=== PATIENT | male | born 1965 | race American Indian/Alaskan Native ===

== ENCOUNTER 2018-05-10 15:20 | Emergency (ER) | payer MEDICARE, OTHER ==
[2018-05-10 15:22] VITALS: BMI 30.4
[2018-05-10 15:25] VITALS: RESP 18; TEMP 98
[2018-05-10 16:23] LABS: BASO # 0.02 K/mm3 (0.0-2.0); BASO % 0.2 % (0.0-3.0); EOS # 0.2 (0.0-0.7); EOS % 2.6 % (1.5-5.0); LYMPH # 2.2 (1.2-3.4); MEAN CELL VOLUME 87.2 fl (80.0-105.0); MEAN CORPUSCULAR HEMOGLOBIN 28.8 pg (25.0-35.0); MEAN PLATELET VOLUME 9.7 fl (7.0-11.0); MONO # 0.9 (0.1-0.6); MONO % 11.5 % (1.0-6.0); RBC 4.86 10^6/uL (3.5-6.1); RED CELL DISTRIBUTION WIDTH 13.1 % (11.5-14.5); WHITE BLOOD COUNT 8.2 10^3/uL (4.5-11.0)
[2018-05-10 16:33] LABS: ALB/GLOB RATIO 1.1 (1.1-1.8); ALBUMIN 4.4 g/dL (3.0-4.8); ALT/SGPT 31 U/L (7-56); AST/SGOT 30 U/L (17-59); BLOOD UREA NITROGEN 8 mg/dL (7-21); CALCIUM 9.2 mg/dL (8.4-10.5); GFR NON-AFRICAN AMERICAN > 60
[2018-05-10] MEDS ORDERED: Iodixanol 320 MG/ML 100 ML BOTTLE IV ONE (17:12)
--- NOTE | 2018-05-10 17:36 | CT ---
Date of service: 05/10/2018 PROCEDURE: CT ORBITS WITH CONTRAST. HISTORY: left eye swelling, pain. r/o orbital cellulitis COMPARISON: None available. TECHNIQUE: Following administration of intravenous iodinated contrast, axial CT images of the orbits were obtained. Coronal and sagittal reformats were generated. Intravenous contrast dose: 100 mL of Visipaque 320 intravenously. Radiation dose: Total exam DLP = 821.77 mGy-cm. This CT exam was performed using one or more of the following dose reduction techniques: Automated exposure control, adjustment of the mA and/or kV according to patient size, and/or use of iterative reconstruction technique. FINDINGS: RIGHT ORBIT: RIGHT BONY ORBIT: Normal. RIGHT INTRAORBITAL STRUCTURES: Globe: Normal. Extraocular muscles: Normal. Post septal space: Normal. Optic Nerve: Normal. Lacrimal Apparatus: Normal. RIGHT PRESEPTAL SOFT TISSUES: Normal. LEFT ORBIT: LEFT BONY ORBIT: Normal. LEFT INTRAORBITAL STRUCTURES: Globe: Normal. Extraocular muscles: Normal. Post septal space: No evidence of inflammatory changes in the postseptal space. Optic Nerve: Normal. Lacrimal Apparatus: Normal. LEFT PRESEPTAL SOFT TISSUES: There is moderate enhancing thickening of the soft tissue in the left preseptal region suggestive of preseptal cellulitis OTHER: . IMPRESSION: Findings suggestive of left preseptal cellulitis. No evidence of postseptal cellulitis or intraorbital abscess formation.
--- NOTE | 2018-05-10 18:02 | ED PDOC ---
Arrival/HPI - General Chief Complaint: Eye Problem Time Seen by Provider: 05/10/18 15:25 Historian: Patient - History of Present Illness Narrative History of Present Illness (Text): 05/10/18 18:08 52 y/o male with no significant PMH presents to ED c/o swelling to left upper eyelid x 1 day. Pt states he saw his eye doctor 2 days ago and had a normal exam. He states he has had a "knot" in his left upper eyelid for a long time, b ut yesterday it became swollen and red with associated pain to the eyelid. Denies fevers, chills, vision changes, headache, dizziness, nausea, vomiting, abdominal pain, neck pain, back pain, numbness, weakness, paresthesias, or any other associated symptoms. Past Medical History - Provider Review Nursing Documentation Reviewed: Yes - Past History Past History: No Previous - Infectious Disease Hx of Infectious Diseases: None - Tetanus Immunization Tetanus Immunization: Unknown - Psychiatric Hx Depression: No Hx Emotional Abuse: No Hx Physical Abuse: No Hx Substance Use: No - Past Surgical History Past Surgical History: No Previous - Surgical History Other/Comment: back surgery - Anesthesia Hx Anesthesia Reactions: No Hx Malignant Hyperthermia: No - Suicidal Assessment Feels Threatened In Home Enviroment: No Family/Social History - Physician Review Nursing Documentation Reviewed: Yes Family/Social History: No Known Family HX Smoking Status: Current Some Days Smoker Hx Alcohol Use: No Hx Substance Use: No Hx Substance Use Treatment: No Allergies/Home Meds Allergies/Adverse Reactions: Allergies No Known Allergies Allergy (Verified 05/24/12 10:35) Physical Exam Vital Signs Reviewed: Yes Vital Signs Temp Pulse Resp BP Pulse Ox 05/10/18 15:20 98 F 70 18 168/98 H 98 Temperature: Afebrile Blood Pressure: Hypertensive Pulse: Regular Respiratory Rate: Normal Appearance: Positive for: Well-Appearing, Non-Toxic, Comfortable Pain Distress: None Mental Status: Positive for: Alert and Oriented X 3 - Systems Exam Head: Present: Atraumatic, Normocephalic Pupils: Present: PERRL Extroacular Muscles: Present: EOMI. No: Gaze Palsy, Entrapment Conjunctiva: Present: Normal, Other (1cm diameter mobile, hard, cyst-like mass in center of left upper eyelid, NOT on lid margin with associated upper and lower lid swelling and warmth. No fluctuance.). No: Injected Ears: Present: Normal, NORMAL TM, Normal Canal Mouth: Present: Moist Mucous Membranes Pharnyx: Present: Normal. No: ERYTHEMA, EXUDATE Nose (External): Present: Atraumatic Nose (Internal): Present: Normal Inspection Neck: Present: Normal Range of Motion. No: Meningeal Signs, MIDLINE TENDERNESS, Paraspinal Tenderness Respiratory/Chest: Present: Clear to Auscultation, Good Air Exchange. No: Respiratory Distress, Accessory Muscle Use Cardiovascular: Present: Regular Rate and Rhythm, Normal S1, S2, Peripheal Pulses Present. No: Murmurs Abdomen: Present: Normal Bowel Sounds. No: Tenderness, Distention, Peritoneal S igns, Rebound, Guarding Back: Present: Normal Inspection. No: CVA Tenderness Upper Extremity: Present: Normal Inspection, Normal ROM, NORMAL PULSES, Neurovascularly Intact, Capillary Refill < 2s. No: Cyanosis, Edema, Temperature Abnormalties Lower Extremity: Present: Normal Inspection, NORMAL PULSES, Normal ROM, Neurovascularly Intact, Capillary Refill < 2 s. No: Edema, Temperature Abnormalties Neurological: Present: GCS=15, CN II-XII Intact, Speech Normal, Motor Func Grossly Intact, Normal Sensory Function, Gait Normal Skin: Present: Warm, Dry, Normal Color, Erythematous (skin around left eye), Other (swelling and redness to skin around left eye). No: Rashes, Abscess Lymphatic: No: Cervical Adenopathy Psychiatric: Present: Alert, Oriented x 3, Normal Insight, Normal Concentration, Normal Affect, Normal Mood Medical Decision Making ED Course and Treatment: Initial Plan: * CBC, CMP * CT Orbits and Facials with IV contrast Labwork unremarkable, no leukocytosis. CT suspicious for preseptal cellulitis. Will place patient on course of oral antibiotics and consult ophthalmology. Patient evaluated at bedside by Dr. Denton, who agrees with plan of care and disposition. 18:00 Call placed to ophthalmology Dr. Chacon. States most likely chalazion, may ultimately need excision/drainage. Advises Tobradex drops four times daily in left eye in addition to oral antibiotics for preseptal cellulitis. Appointment scheduled for 9am Saturday morning in his office. Patient made aware and repeated appointment time and date back to me, verbalized understanding of importance of followup. States he will followup as instructed. Patient without history of hypertension, BP 166/107. Advised staying for management of BP in ED, patient refuses. Will have patient sign out AMA. The patient is choosing to leave against medical advice. I have personally explained to the patient that choosing to do so may result in permanent bodily harm, disability, or . I have discussed at great length that without further evaluation and monitoring there may be unforeseen circumstances and/or deterioration causing permanent bodily harm or as a result of their choice. The patient is alert, oriented, and shows the mental capacity to make clear decisions regarding the patients health care at this time. The patient continues to wish to leave against medical advice. In light of the patients decision to leave against medical advice, follow-up has been arranged and the patient is aware of the importance to following up as instructed. The patient has been advised that they should return to the emergency room immediately if they change their mind at any time, or if their condition begins to change or worsen in any way. Patient left ED without waiting for first dose of medications. IV line was removed prior to patient leaving. Patient given discharge paperwork and prescriptions. - Lab Interpretations Lab Results: Total Bilirubin 0.4 mg/dL (0.2-1.3) 05/10/18 16:10 AST 30 U/L (17-59) 05/10/18 16:10 ALT 31 U/L (7-56) 05/10/18 16:10 Alkaline Phosphatase 90 U/L (38-126) 05/10/18 16:10 Total Protein 8.3 g/dL (5.8-8.3) 05/10/18 16:10 Albumin 4.4 g/dL (3.0-4.8) 05/10/18 16:10 Globulin 3.9 gm/dL 05/10/18 16:10 Albumin/Globulin Ratio 1.1 (1.1-1.8) 05/10/18 16:10 05/10/18 16:10 05/10/18 16:10 Lab Results 05/10/18 16:10: Sodium 140, Potassium 3.9, Chloride 104, Carbon Dioxide 29, Anion Gap 10, BUN 8, Creatinine 0.9, Est GFR ( Amer) > 60, Est GFR (Non- Af Amer) > 60, Random Glucose 87, Calcium 9.2, Total Bilirubin 0.4, AST 30, ALT 31, Alkaline Phosphatase 90, Total Protein 8.3, Albumin 4.4, Globulin 3.9, Albumin/Globulin Ratio 1.1 05/10/18 16:10: WBC 8.2, RBC 4.86, Hgb 14.0, Hct 42.4, MCV 87.2, MCH 28.8, MCHC 33.0, RDW 13.1, Plt Count 223, MPV 9.7, Neut % (Auto) 58.7, Lymph % (Auto) 27.0, [place] % (Auto) 11.5 H, Eos % (Auto) 2.6, Baso % (Auto) 0.2, Lymph # (Auto) 2.2, [place] # (Auto) 0.9 H, Eos # (Auto) 0.2, Baso # (Auto) 0.02, Absolute Neuts (auto) 4.82 I have reviewed the lab results: Yes Interpretation: All labs normal - RAD Interpretation Narrative RAD Interpretations (Text): 05/10/18 17:59 CT Orbits/Facials with IV Contrast: FINDINGS: RIGHT ORBIT: RIGHT BONY ORBIT: Normal. RIGHT INTRAORBITAL STRUCTURES: Globe: Normal. Extraocular muscles: Normal. Post septal space: Normal. Optic Nerve: Normal. Lacrimal Apparatus: Normal. RIGHT PRESEPTAL SOFT TISSUES: Normal. LEFT ORBIT: LEFT BONY ORBIT: Normal. LEFT INTRAORBITAL STRUCTURES: Globe: Normal. Extraocular muscles: Normal. Post septal space: No evidence of inflammatory changes in the postseptal space. Optic Nerve: Normal. Lacrimal Apparatus: Normal. LEFT PRESEPTAL SOFT TISSUES: There is moderate enhancing thickening of the soft tissue in the left preseptal region suggestive of preseptal cellulitis OTHER: IMPRESSION: Findings suggestive of left preseptal cellulitis. No evidence of postseptal cellulitis or intraorbital abscess formation. Radiology Orders: 05/10/18 15:43 ORBITS/ FACIALS W/ CONT [CT] Stat Coater Operator Insulation Board: Radiologist Disposition/Present on Arrival - Present on Arrival Any Indicators Present on Arrival: No History of DVT/PE: No History of Uncontrolled Diabetes: No Urinary Catheter: No History of Decub. Ulcer: No History Surgical Site Infection Following: None - Disposition Have Diagnosis and Disposition been Completed?: Yes Diagnosis: Chalazion, Preseptal cellulitis of left eye Disposition: AGAINST MEDICAL ADVICE Disposition Time: 19:00 Patient Plan: Discharge Condition: STABLE Discharge Instructions (ExitCare): Chalazion Additional Instructions: Followup with Dr. Chacon, eye doctor. You have an appointment at 9am on Saturday. Office listed below. Warm compresses 15 minutes at a time, 4 times daily. Change water and cloth in between. Augmentin twice daily for 7 days Bactrim twice daily for 7 days Tobradex 1 drop in left eye 4 times daily until followup with Dr. Chacon Followup with primary doctor within 2 days Return to ER with any new/worsening symptoms Prescriptions: Amoxicillin/Clavulanate [Augmentin 875 MG-125 MG] 1 tab PO Q12H #13 tab Ibuprofen [Motrin Tab] 600 mg PO Q8H #30 tab Sulfamethoxazole/Trimethoprim [Bactrim DS 800 mg-160 mg] 1 tab PO Q12H #13 tab Tobramycin/Dexamethasone [Tobradex St Eye Drops] 5 ml OS Q6H #1 bottle Referrals: Bryan Arciniega MD [Primary Care Provider] - Follow up with primary Chas Chacon MD [Staff Provider] - Follow up with primary Forms: [employer] (Czech), WORK NOTE
[2018-05-10 18:42] VITALS: PULSE 75
[2018-05-10] MEDS ORDERED: Amoxicillin-Clav 875-125 mg Tab PO STA (18:45)
[2018-05-10] MEDS ORDERED: Tmp-Smz 800 mg-160 mg DS Tab PO STA (18:45)
[2018-05-10 19:03] VITALS: BP 148/99; O2SAT 98
== END 2018-05-10 19:01 | disposition left against medical advice (07) ==
LOC: ED 15:20
DX: L03.213 Periorbital cellulitis (principal); H00.14 Chalazion left upper eyelid
CPT/HCPCS: 70481; 80053; 85025; 99283; Q9967

== ENCOUNTER 2018-06-12 08:11 | Outpatient (CLI) | payer MEDICARE | END 2018-06-12 08:12 | disposition home or self-care (01) | LOC: CARDIO 08:11 ==

== ENCOUNTER 2018-09-07 08:35 | Emergency (ER) | payer MEDICARE ==
--- NOTE | 2018-09-07 08:46 | ED PDOC ---
Arrival/HPI - General Time Seen by Provider: 09/07/18 08:39 Historian: Patient - History of Present Illness Narrative History of Present Illness (Text): 09/07/18 08:52 52 year old male, with past medical history of hypertension, back surgery, and shoulder surgery presents to emergency department for complaints of shortness of breath and diffuse, vague left-sided pain in abdominal pain following waking up this morning. Patient reports associated nausea and sweats. He states he has never experienced these symptoms before. Patient denies any fevers, headache, dizziness, vomiting, diarrhea, back pain, neck pain, or any other complaints. He also denies any drug abuse or alcohol consumption. Patient admits to smoking a little less than a pack a day of cigarettes a day for the past 15 years. PMD: Time/Duration: Prior to Arrival Symptom Onset: Sudden Symptom Course: Unchanged Activities at Onset: Light Context: Home Past Medical History - Provider Review Nursing Documentation Reviewed: Yes - Past History Past History: No Previous - Infectious Disease Hx of Infectious Diseases: None - Tetanus Immunization Tetanus Immunization: Unknown - Psychiatric Hx Depression: No Hx Emotional Abuse: No Hx Physical Abuse: No Hx Substance Use: No - Past Surgical History Past Surgical History: No Previous - Surgical History Other/Comment: back surgery - Anesthesia Hx Anesthesia Reactions: No Hx Malignant Hyperthermia: No - Suicidal Assessment Feels Threatened In Home Enviroment: No Family/Social History - Physician Review Nursing Documentation Reviewed: Yes Family/Social History: No Known Family HX Smoking Status: Current Some Days Smoker Hx Alcohol Use: No Hx Substance Use: No Hx Substance Use Treatment: No Allergies/Home Meds Allergies/Adverse Reactions: Allergies No Known Allergies Allergy (Verified 05/24/12 10:35) Review of Systems - Physician Review All systems were reviewed & negative as marked: Yes - Review of Systems Constitutional: absent: Fevers Gastrointestinal: absent: Vomiting Physical Exam - Physical Exam Narrative Physical Exam (Text): 09/07/18 08:44 Constitutional: Appears uncomfortable, breathing heavily Head: Normocephalic. Atraumatic. Eyes: PERRL. ENT: Moist mucous membranes. Neck: Supple. Cardiovascular: Regular rate. Chest: No tenderness. Respiratory: Clear to auscultation bilaterally. GI: Diffuse abdominal tenderness without rebound or guarding Back: No CVA tenderness. Musculoskeletal: No tenderness or swelling of extremities. Skin: No rash. Neurologic: Alert, no focal deficit. Vital Signs Reviewed: Yes Vital Signs Temp Pulse Resp BP Pulse Ox 09/07/18 08:41 97.6 F 54 L 18 140/67 98 Temperature: Afebrile Blood Pressure: Normal Pulse: Regular Respiratory Rate: Normal Appearance: Positive for: Well-Appearing, Non-Toxic, Comfortable Pain Distress: None Mental Status: Positive for: Alert and Oriented X 3 Medical Decision Making ED Course and Treatment: 09/07/18 08:48 Impression: 52 year old male presents to emergency department for shortness of breath and left-sided pain chest/abdominal pain since waking up this morning. Plan: -- Labs -- Chest X-ray -- Aspirin -- Zofran Progress Notes: EKG: Ordered, reviewed, and independently interpreted the EKG. Rate : 54 BPM Rhythm : Sinus rhythm Interpretation : No ST elevations, T wave inversions, inferior 09/07/18 10:58 CT abdomen/pelvis, reviewed by radiologist: IMPRESSION: Infectious/inflammatory gastritis and pancolitis. No obstruction. Left renal lower pole 1.6 cm lesion with peripheral calcification, nonspecific. Nonemergent renal ultrasound and multiphasic CT/MRI can be obtained for further characterization as clinically warranted. 09/07/18 11:17 Chest X-ray, reviewed by radiologist: IMPRESSION: No active disease. Patient states he feels better and would like to go home. I offered patient admission for intractible vomiting and EKG changes. Patient states he definitely had these T wave inversions on his previous EKG and that was why he was sent for an echo. He declines admission and wishes to go home. Instructed to return to ED immediately for intractible vomiting or any other problem. - Scribe Statement The provider has reviewed the documentation as recorded by the Scribe Jermain Sewell All medical record entries made by the Scribe were at my direction and personally dictated by me. I have reviewed the chart and agree that the record accurately reflects my personal performance of the history, physical exam, medical decision making, and the department course for this patient. I have also personally directed, reviewed, and agree with the discharge instructions and disposition. Disposition/Present on Arrival - Present on Arrival Any Indicators Present on Arrival: No History of DVT/PE: No History of Uncontrolled Diabetes: No Urinary Catheter: No History Surgical Site Infection Following: None - Disposition Have Diagnosis and Disposition been Completed?: Yes Diagnosis: Pancolitis Disposition: HOME/ ROUTINE Disposition Time: 11:14 Patient Plan: Discharge Patient Problems: Current Active Problems Problem Status Onset Pancolitis Acute Condition: FAIR Discharge Instructions (ExitCare): Colitis (DC) Prescriptions: Ciprofloxacin [Cipro] 500 mg PO BID #20 tab Metronidazole [Flagyl] 500 mg PO Q8 #30 tab Ondansetron ODT [Zofran ODT] 8 mg PO Q8H PRN #12 odt PRN Reason: Nausea/Vomiting
[2018-09-07 08:51] VITALS: RESP 18; BMI 107.6
[2018-09-07 08:54] VITALS: TEMP 97.8; O2SAT 100
[2018-09-07 09:24] LABS: BASO # 0.02 K/mm3 (0.0-2.0); BASO % 0.2 % (0.0-3.0); EOS # 0.2 (0.0-0.7); EOS % 2.7 % (1.5-5.0); HEMOGLOBIN 13.4 g/dL (14.0-18.0); LYMPH # 2.8 (1.2-3.4); LYMPH % 31.8 % (22.0-35.0); MEAN CELL VOLUME 85.2 fl (80.0-105.0); MEAN CORPUSCULAR HEMOGLOBIN 29.2 pg (25.0-35.0); MEAN CORPUSCULAR HGB CONC 34.3 g/dl (31.0-37.0); MEAN PLATELET VOLUME 9.8 fl (7.0-11.0); MONO # 0.9 (0.1-0.6); MONO % 9.8 % (1.0-6.0); RBC 4.59 10^6/uL (3.5-6.1); WHITE BLOOD COUNT 8.6 10^3/uL (4.5-11.0)
[2018-09-07 09:28] LABS: INR 1.06
[2018-09-07 09:30] LABS: ALB/GLOB RATIO 1.3 (1.1-1.8); ALBUMIN 4.1 g/dL (3.0-4.8); ALT/SGPT 28 U/L (7-56); AST/SGOT 28 U/L (17-59); BLOOD UREA NITROGEN 10 mg/dL (7-21); CALCIUM 9.4 mg/dL (8.4-10.5); GFR NON-AFRICAN AMERICAN > 60; LIPASE 35 U/L (23-300)
[2018-09-07 09:41] LABS: B-TYPE NATRIURETIC PEPTIDE 156 pg/mL (0-450); TROPONIN I < 0.01 ng/mL
[2018-09-07] MEDS ORDERED: Iohexol 350 MG/100 ML VIAL ONE (09:44)
[2018-09-07 09:56] LABS: CK-MB 3.6 ng/mL (0.0-3.6)
--- NOTE | 2018-09-07 11:01 | CT ---
Date of service: 09/07/2018 PROCEDURE: CT Abdomen and Pelvis with contrast HISTORY: abd pain, vomiting COMPARISON: None. TECHNIQUE: Contrast dose: 100 mL Omnipaque 350 Radiation dose: Total exam DLP = 1092.57 mGy-cm. This CT exam was performed using one or more of the following dose reduction techniques: Automated exposure control, adjustment of the mA and/or kV according to patient size, and/or use of iterative reconstruction technique. FINDINGS: LOWER THORAX: Unremarkable. LIVER: Unremarkable. No gross lesion or ductal dilatation. GALLBLADDER AND BILE DUCTS: Unremarkable. PANCREAS: Unremarkable. No gross lesion or ductal dilatation. SPLEEN: Unremarkable. ADRENALS: Unremarkable. No mass. KIDNEYS AND URETERS: Left lower pole 1.6 x 1.3 x 1.6 cm lesion with peripheral calcification, nonspecific. 2.0 cm left interpolar cyst. VASCULATURE: Unremarkable. No aortic aneurysm. No aortic atherosclerotic calcification or mural plaque present. BOWEL: Distended stomach with abrupt caliber change in the proximal duodenum. Thickening of the antrum and duodenum. Thickening of the colon from ascending colon to the rectosigmoid junction. APPENDIX: Normal appendix. PERITONEUM: Unremarkable. No free fluid. No free air. LYMPH NODES: Prominent peripancreatic and gastrohepatic ligament lymph nodes. BLADDER: Unremarkable. REPRODUCTIVE: Unremarkable. BONES: Old screw tracts from removed L4-5 posterior fusion hardware. Degenerative changes. No acute fracture. OTHER FINDINGS: None. IMPRESSION: Infectious/inflammatory gastritis and pancolitis. No obstruction. Left renal lower pole 1.6 cm lesion with peripheral calcification, nonspecific. Nonemergent renal ultrasound and multiphasic CT/MRI can be obtained for further characterization as clinically warranted.
--- NOTE | 2018-09-07 11:20 | RAD ---
Date of service: 09/07/2018 HISTORY: chest pain COMPARISON: No prior. TECHNIQUE: 1 view obtained. FINDINGS: LUNGS: No active pulmonary disease. PLEURA: No significant pleural effusion identified, no pneumothorax apparent. CARDIOVASCULAR: Aortic atherosclerotic calcifications. Cardiomediastinal silhouette within normal limits. OSSEOUS STRUCTURES: No significant abnormalities. VISUALIZED UPPER ABDOMEN: Normal. OTHER FINDINGS: None. IMPRESSION: No active disease.
[2018-09-07 11:53] VITALS: BP 129/78; PULSE 61
--- NOTE | 2018-09-08 11:29 | CARD ---
APPROVED REPORT Date of service: 09/07/2018 EKG Measurement Heart [id number] <Conclusion> Sinus bradycardia with sinus arrhythmia Minimal voltage criteria for LVH, may be normal variant ST & T wave abnormality, consider inferior ischemia Abnormal ECG
--- NOTE | 2018-09-10 14:20 | CON ---
DATE OF CONSULTATION: 09/10/2018 GASTROENTEROLOGY CONSULTATION REQUESTING PHYSICIAN: Dr. Edu Ventura. REASON FOR CONSULTATION: I have been asked to see this 52-year-old male with a history of hypertension, who comes to the hospital with 3 days of crampy abdominal pain, nausea, and vomiting after eating a pizza that did not taste right. The patient was seen in the emergency room on 09/07/2018. He had a CT scan of the abdomen and pelvis, which showed a stomach, which was distended and filled with food with a distended duodenum. There appeared to be an abrupt transition in the diameter of the duodenum in the area of the descending duodenum. The patient also had some nonspecific mural thickening of the left colon. He denies any diarrhea or rectal bleeding. He denies any recent travel. Again, the patient was well until he ate pizza that tasted bad approximately 3 days ago. The patient came to the emergency room yesterday with persistent vomiting and weakness. In the emergency room, the patient had a near syncopal episode with weakness and lightheadedness. His last episode of vomiting was yesterday. He has not been able to take any p.o. by mouth. PAST MEDICAL HISTORY: Notable for hypertension. PAST SURGICAL HISTORY: Notable for low back surgery over 20 years ago and shoulder surgery. SOCIAL HISTORY: He smokes under half a pack of cigarettes per day. He denies alcohol abuse. He denies substance abuse. He is disabled and unable to work. FAMILY HISTORY: Noncontributory. REVIEW OF SYSTEMS: Fourteen-point review of systems is notable for intractable vomiting, abdominal cramps, weakness, and dizziness. MEDICATIONS: Medications at home include hydrochlorothiazide. PHYSICAL EXAMINATION: GENERAL: Well-developed male, lying in bed, in no acute distress. VITAL SIGNS: Reveal a temperature of 97.6, blood pressure 170/85, heart rate of 65. HEENT: Reveals sclerae to be white. Conjunctivae pink. Oral mucosa, slightly dry. NECK: Supple. CHEST: Lungs are clear. HEART: Exam reveals regular rate and rhythm. ABDOMEN: Obese, soft, nontender. EXTREMITIES: Show no edema. LABORATORY DATA: Revealed white blood cell count of 10.2, hemoglobin 14.5. Chemistries reveal BUN 14, creatinine 1.1, potassium of 3. IMPRESSION: A 52-year-old male with 3 days of intractable vomiting after eating pizza that was bad. CT scan of the abdomen reveals fluid-filled stomach and proximal duodenum. There appears to be an abrupt transition point in the descending duodenum. I am concerned about duodenal obstruction. The patient has nonspecific mural thickening of the left colon. He denies any diarrhea. I do not believe that the patient has colitis in the absence of diarrhea, rectal bleeding, or abdominal cramps. RECOMMENDATIONS: I will schedule the patient for an urgent endoscopy this morning to rule out duodenal obstruction. Joni Wills MD
== END 2018-09-07 11:55 | disposition home or self-care (01) ==
LOC: ED 08:35
DX: K51.00 Ulcerative (chronic) pancolitis without complications (principal); I10 Essential (primary) hypertension; F17.210 Nicotine dependence, cigarettes, uncomplicated
CPT/HCPCS: 71045; 74177; 80053; 82550; 82553; 83690; 83735; 83880; 84100; 84484; 85025; 85610; 85730; 93005; 96374; 96375; 99283; J2405; J2765; Q9967

== ENCOUNTER 2018-09-09 10:49 | Inpatient (IN) | payer MEDICARE ==
[2018-09-09 10:58] VITALS: BMI 31.5
--- NOTE | 2018-09-09 11:10 | PCM.FALL ---
<Coleen Guthrie - Last Filed: 09/09/18 11:07> Post Fall Progress Note - Post Fall Fall Date: 09/09/18 Fall Time: 10:55 Description of Fall: Patient came in to the ED waiting room. Placed his head on the desk where the hospital secretary sits. He wobbled a bit a fell. On exam, he denies being in any pain. He was taken to the ED to bed 7 for evaluation of his chief complaint and the fall. - Post Fall Exam Vital Sign: Temp Pulse Resp BP Pulse Ox 98.1 F 60 18 176/99 H 100 09/09/18 10:57 09/09/18 10:57 09/09/18 10:57 09/09/18 10:57 09/09/18 10:57 Impression/Plan: Patient was taken to the ED and will be medically evaluated. <Meghan Murray - Last Filed: 09/09/18 14:16> Post Fall Progress Note - Post Fall Exam Vital Sign: Temp Pulse Resp BP Pulse Ox 98.1 F 60 18 176/99 H 100 09/09/18 10:57 09/09/18 10:57 09/09/18 10:57 09/09/18 10:57 09/09/18 10:57 Attending/Attestation - Attestation I have personally seen and examined this patient.: No I have fully participated in the care of the patient.: No I have reviewed all pertinent clinical information, including history, physical exam and plan: No
[2018-09-09] MEDS ORDERED: Sodium Chloride 0.9% 1,000 ML IV ONE (11:39)
--- NOTE | 2018-09-09 11:46 | ED PDOC ---
Arrival/HPI - General Chief Complaint: Syncope Historian: Patient - History of Present Illness Time/Duration: Prior to Arrival Symptom Onset: Gradual Symptom Course: Unchanged Quality: Cramping, Gas Like Severity Level: Moderate Activities at Onset: Rest Associated Symptoms (Text): 09/09/18 11:46 Patient complains of a several day history of generalized crampy gas-like abdominal pain along with nausea and vomiting. No diarrhea. He relates this to eating pizza out one night. He was seen in the emergency department 2 days ago and had a work-up done including CT scan of the abdomen and pelvis. He was discharged home on Cipro and Flagyl. He has continued to vomit and has been unable to tolerate his antibiotics. He also complains of shortness of breath, though he appears to be in no distress. He had a syncopal or near syncopal episode while in the waiting room this morning. No chest pain or palpitations. He has never experienced this previously. No injury or trauma. Past Medical History - Provider Review Primary Care Provider: Edu Ventura - Past History Past History: No Previous - Infectious Disease Hx of Infectious Diseases: None - Tetanus Immunization Tetanus Immunization: Unknown - Cardiac Hx Hypertension: Yes Other/Comment: PT IS ON HYPERTENSION MEDICATIONS - Psychiatric Hx Depression: No Hx Emotional Abuse: No Hx Physical Abuse: No Hx Substance Use: No - Past Surgical History Past Surgical History: No Previous - Surgical History Other/Comment: back surgery - Anesthesia Hx Anesthesia: Yes Hx Anesthesia Reactions: No Hx Malignant Hyperthermia: No - Suicidal Assessment Feels Threatened In Home Enviroment: No Family/Social History - Physician Review Nursing Documentation Reviewed: Yes Family/Social History: Unknown Family HX Smoking Status: Light Smoker < 10 Cigarettes Daily Hx Alcohol Use: No Hx Substance Use: No Hx Substance Use Treatment: No Allergies/Home Meds Allergies/Adverse Reactions: Allergies No Known Allergies Allergy (Verified 09/09/18 11:06) Home Medications: Home Meds Medication Instructions Recorded Confirmed hydroCHLOROthiazide [Hydrodiuril] 25 mg PO DAILY 09/09/18 09/09/18 Review of Systems - Physician Review All systems were reviewed & negative as marked: Yes - Review of Systems Constitutional: Fatigue. absent: Fevers Respiratory: SOB. absent: Cough, Sputum, Wheezing Cardiovascular: Syncope. absent: Chest Pain, Palpitations Gastrointestinal: Abdominal Pain, Nausea, Vomiting, Anorexia, Food Intolerance. absent: Diarrhea, Hematochezia, Hematemesis Genitourinary Male: absent: Dysuria, Frequency, Hematuria Neurological: absent: Headache, Dizziness, Focal Weakness, Gait Changes Physical Exam Vital Signs Temp Pulse Resp BP Pulse Ox 09/09/18 10:57 98.1 F 60 18 176/99 H 100 Temperature: Afebrile Blood Pressure: Hypertensive Pulse: Regular Respiratory Rate: Normal Appearance: Positive for: Well-Appearing, Non-Toxic, Uncomfortable Pain Distress: None Mental Status: Positive for: Alert and Oriented X 3 - Systems Exam Head: Present: Atraumatic, Normocephalic Pupils: Present: PERRL Extroacular Muscles: Present: EOMI Conjunctiva: Present: Normal Ears: Present: NORMAL TM, Normal Canal. No: Erythema, TM Bulging Mouth: Present: Moist Mucous Membranes Pharnyx: No: ERYTHEMA, EXUDATE, TONSILS ENLARGED Respiratory/Chest: Present: Clear to Auscultation, Good Air Exchange, Decreased Breath Sounds. No: Respiratory Distress, Accessory Muscle Use Cardiovascular: Present: Regular Rate and Rhythm, Normal S1, S2. No: Murmurs Abdomen: No: Tenderness, Distention, Peritoneal Signs, Rebound, Guarding Upper Extremity: Present: Normal Inspection. No: Cyanosis, Edema Lower Extremity: Present: Normal Inspection. No: Edema Neurological: Present: GCS=15, CN II-XII Intact, Speech Normal, Motor Func Grossly Intact, Normal Sensory Function, Normal Cerebellar Funct Skin: Present: Warm, Dry, Normal Color. No: Rashes Psychiatric: Present: Alert, Oriented x 3, Normal Insight, Normal Concentration Medical Decision Making ED Course and Treatment: 09/09/18 11:50 EKG shows sinus bradycardia rate approximately [address] or T wave changes. There are inverted T waves inferiorly. Poor R wave progression. - Lab Interpretations Narrative Lab Interpretation (Text): 09/09/18 16:31 09/09/18 11:58 09/09/18 11:58 Lab Results 09/09/18 11:58: Sodium 136, Chloride 98, Potassium 3.0 L, Carbon Dioxide 25, Anion Gap 16, BUN 14, Creatinine 1.1, Est GFR ( Amer) > 60, Est GFR (Non- Af Amer) > 60, Random Glucose 103, Calcium 9.0, Magnesium 1.9, Total Bilirubin 0.6, AST 33, ALT 21, Alkaline Phosphatase 76, Lactate Dehydrogenase 390, Total Creatine Kinase 471 H, CK-MB (CK-2) 3.3, CK-MB (CK-2) % Cancelled, Troponin I < 0.01, NT-Pro-B Natriuret Pep 162, Total Protein 8.3, Albumin 4.4, Globulin 3.9, Albumin/Globulin Ratio 1.1, Lipase 144 09/09/18 11:58: D-Dimer, Quantitative < 200 09/09/18 11:58: WBC 10.2, RBC 5.01, Hgb 14.5, Hct 42.9, MCV 85.6, MCH 28.9, MCHC 33.8, RDW 13.1, Plt Count 255, MPV 9.8, Neut % (Auto) 70.5 H, Lymph % (Auto) 18.4 L, Glenn % (Auto) 10.5 H, Eos % (Auto) 0.5 L, Baso % (Auto) 0.1, Lymph # (Auto) 1.9, Glenn # (Auto) 1.1 H, Eos # (Auto) 0.1, Baso # (Auto) 0.01, Absolute Neuts (auto) 7.18 H 09/09/18 11:50: pO2 44, VBG pH 7.50 H, VBG pCO2 34.0 L, VBG HCO3 26.5, VBG Total CO2 27.5, VBG O2 Sat (Calc) 86.0 H, VBG Base Excess 3.6 H, VBG Potassium 2.9 L, Sodium 134.0, Chloride 99.0, Glucose 100, Lactate 2.5 H, FiO2 21.0, Crit Value Called To , Crit Value Called By [id number], Blood Gas Notified Time 1200, Venous Blood Potassium 2.9 L 09/09/18 11:07: POC Glucose (mg/dL) 121 H I have reviewed the lab results: Yes - Medication Orders Current Medication Orders: Sodium Chloride (Sodium Chloride 0.9%) 1,000 mls @ 500 mls/hr IV ONCE ONE Stop: 09/09/18 13:38 Ondansetron HCl (Zofran Inj) 4 mg IVP ONCE ONE Stop: 09/09/18 11:40 Pantoprazole Sodium (Protonix Inj) 40 mg IVP ONCE STA Stop: 09/09/18 11:40 Disposition/Present on Arrival - Present on Arrival Any Indicators Present on Arrival: No History of DVT/PE: No History of Uncontrolled Diabetes: No Urinary Catheter: No History of Decub. Ulcer: No History Surgical Site Infection Following: None - Disposition Have Diagnosis and Disposition been Completed?: Yes Diagnosis: Colitis, Abdominal pain, Hypokalemia, Nausea and vomiting, Hypertension, Syncope, Dyspnea Disposition: HOSPITALIZED Disposition Time: 13:05 Patient Plan: Observation, Telemetry Patient Problems: Current Active Problems Problem Status Onset Abdominal pain Acute Colitis Acute Dyspnea Acute Hypertension Acute Hypokalemia Acute Nausea and vomiting Acute Syncope Acute Condition: FAIR
[2018-09-09 11:59] LABS: VENOUS BLOOD GAS BASE EXCESS 3.6 mmol/L (0.0-2.0); VENOUS BLOOD GAS PO2 44 mm/Hg (30-55)
[2018-09-09 12:34] LABS: BASO # 0.01 K/mm3 (0.0-2.0); BASO % 0.1 % (0.0-3.0); EOS # 0.1 (0.0-0.7); EOS % 0.5 % (1.5-5.0); HEMOGLOBIN 14.5 g/dL (14.0-18.0); LYMPH # 1.9 (1.2-3.4); LYMPH % 18.4 % (22.0-35.0); MEAN CELL VOLUME 85.6 fl (80.0-105.0); MEAN CORPUSCULAR HEMOGLOBIN 28.9 pg (25.0-35.0); MEAN CORPUSCULAR HGB CONC 33.8 g/dl (31.0-37.0); MEAN PLATELET VOLUME 9.8 fl (7.0-11.0); MONO # 1.1 (0.1-0.6); MONO % 10.5 % (1.0-6.0); RBC 5.01 10^6/uL (3.5-6.1); RED CELL DISTRIBUTION WIDTH 13.1 % (11.5-14.5); WHITE BLOOD COUNT 10.2 10^3/uL (4.5-11.0)
[2018-09-09 12:40] LABS: ALB/GLOB RATIO 1.1 (1.1-1.8); ALBUMIN 4.4 g/dL (3.0-4.8); ALT/SGPT 21 U/L (7-56); AST/SGOT 33 U/L (17-59); BLOOD UREA NITROGEN 14 mg/dL (7-21); GFR NON-AFRICAN AMERICAN > 60; LIPASE 144 U/L (23-300)
[2018-09-09 12:49] LABS: B-TYPE NATRIURETIC PEPTIDE 162 pg/mL (0-450); TROPONIN I < 0.01 ng/mL
[2018-09-09 12:56] LABS: CK-MB 3.3 ng/mL (0.0-3.6)
[2018-09-09 15:18] LABS: VENOUS BLOOD GAS PO2 44 mm/Hg (30-55); VENOUS BLOOD PH 7.45 (7.32-7.43)
--- NOTE | 2018-09-09 17:39 | CARD ---
APPROVED REPORT Date of service: 09/09/2018 EKG Measurement Heart [id number] <Conclusion> Sinus bradycardia Voltage criteria for left ventricular hypertrophy T wave abnormality, consider inferior ischemia Abnormal ECG
[2018-09-09] MEDS ORDERED: Sodium Chloride 0.9% 100 ML IV SCH (20:45)
[2018-09-09] MEDS: metroNIDAZOLE IV 500 mg/100 ml 500 MG/100 ML BAG IVPB SCH (21:33)
[2018-09-09] MEDS ORDERED: Pneumococcal 23-Valent Vaccine IM ONE (22:23)
[2018-09-10] MEDS: metroNIDAZOLE IV 500 mg/100 ml 500 MG/100 ML BAG IVPB SCH ×2 (05:21→14:31)
[2018-09-10 06:28] VITALS: RESP 20
[2018-09-10] MEDS ORDERED: Potassium Chloride 20 mEq ER Tab PO SCH (08:00)
[2018-09-10] MEDS ORDERED: Propofol 10 mg/ml Inj (20 ML) ONE (09:45)
[2018-09-10] MEDS ORDERED: cefTRIAXone 1 gm 1 GM/100 ML BAG IVPB SCH (10:00)
[2018-09-10] MEDS ORDERED: Sodium Chloride 0.9% 1,000 ML IV SCH ×2 (10:15→12:36)
[2018-09-10 10:30] VITALS: O2SAT 99
[2018-09-10] MEDS ORDERED: Pantoprazole 40 mg EC Tab PO SCH (10:30)
[2018-09-10 18:02] VITALS: BP 148/89; PULSE 60; TEMP 97
--- NOTE | 2018-09-10 19:34 | HP ---
DATE OF EXAM: 09/10/2018 HISTORY OF PRESENT ILLNESS: A 52-year-old black male who present after having an episode of nausea and vomiting followed by diarrhea, severe abdominal pain. The patient was seen in the emergency room 2 days ago and was released on p.o. medications; however, the patient continued to have severe abdominal pain, nausea, vomiting, and lightheadedness. The patient came to emergency room having near syncopal episode while awaiting in the waiting room, but he was found to hypokalemic. CAT scan showed pancolitis and the patient was admitted to the hospital. The patient states that several days ago, he had eaten pizza late at night, possibly not well cooked and 3 hours later started with vomiting. Denies any fever or chills and then eventually had diarrhea. PAST MEDICAL HISTORY: The patient does have a past medical history of severe colonic polyps with severe GI bleeding. He was admitted to [facility] approximately 3 to 4 years ago and was seen at consulted by Dr. Mata Vazquez, a skoog operator who removed colonic polyps. He has not had any other GI symptoms since then. He does have past medical history of mild hypertension. PAST SURGICAL HISTORY: The patient has no past surgical history. SOCIAL HISTORY: He is nonsmoker, not a drinker. Negative. FAMILY HISTORY: Noncontributory. There is no colon cancer in the family. The patient has no travel history. REVIEW OF SYSTEMS: He is pertinent only for nausea, vomiting, and abdominal pain. 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 PHYSICAL EXAMINATION GENERAL: Shows a well-developed, well-nourished black male in no apparent distress, the following morning after being hydrated and started on IV antibiotics. The patient has no abdominal pain now. States that the pain was periumbilical and he is awake, alert, and oriented x3 neurologically. CARDIAC: Normal S1 and S2. No murmurs, hives or thrills. CHEST: Clear to auscultation. ABDOMEN: Nondistended. Bowel sounds are normoactive. There is no tenderness palpable. There is no rebound. No guarding. There is no hepatosplenomegaly. EXTREMITIES: Without cyanosis, clubbing, or edema. There is no CVA tenderness. NEUROLOGIC: Sensation is grossly intact. IMPRESSION: A 52-year-old black male with a history of colonic polyps in the past, who had recently had possible food poisoning associated with nausea, vomiting, and diarrhea. CAT scan showed pancolitis. He had a near syncopal episode associated with hypokaliemia in the emergency room. PLAN: To GI consultation, IV hydration, restart diet today. Continue IV Flagyl and Rocephin and eventual GI workup as an outpatient. The patient have been scheduled for colonoscopy actually today as an outpatient. Edu Ventura MD
== END 2018-09-10 19:13 | disposition home or self-care (01) | DRG 392 ==
LOC: ED 10:49 → ERH 13:07 → 2RNO 16:33
PROVIDERS: ADMIT Internal Medicine; ATTEND Internal Medicine
PROC: 0DB68ZX Excision of Stomach, Via Natural or Artificial Opening Endoscopic, Diagnostic (ICD-10-PCS; 2018-09-10)
PROC: 0DB98ZX Excision of Duodenum, Via Natural or Artificial Opening Endoscopic, Diagnostic (ICD-10-PCS; principal; 2018-09-10 09:00)
DX: K52.9 Noninfective gastroenteritis and colitis, unspecified (principal); E87.6 Hypokalemia; I10 Essential (primary) hypertension; R55 Syncope and collapse; K29.50 Unspecified chronic gastritis without bleeding; B96.81 Helicobacter pylori [H. pylori] as the cause of diseases classified elsewhere; W19.XXXA Unspecified fall, initial encounter; Z86.010 Personal history of colon polyps

== ENCOUNTER 2018-09-12 03:32 | Emergency (ER) | payer MEDICARE ==
[2018-09-12 03:32] VITALS: BMI 31.5
--- NOTE | 2018-09-12 03:49 | ED PDOC ---
Arrival/HPI - General Historian: Patient - History of Present Illness Narrative History of Present Illness (Text): 09/12/18 03:48 Patient is a 52 yo AA male with a history of GI bleed, colonic polyps, and HTN who presents with vomiting. Patient was just discharged from the hospital 2 days for the same symptoms. He was seen by GI and had an EGD that showed erythematous duodenopathy and a CT that showed gastritis and pancolitis. He was discharged on Flagyl and instructed to follow-up as an outpatient. Patient states that every time he takes the Flagyl, he vomits clear mucus. He has intermittent nausea. He is able to tolerate food and drink. He denies drinking alcohol. He also states that he has not had a bowel movement since Saturday which is unusual for him as he typically has one every morning. He complains of mild diffuse abdominal pain. Time/Duration: 24 hours Symptom Onset: Sudden Symptom Course: Unchanged <Jaimie Brizuela - Last Filed: 09/12/18 04:27> <Allan Currie - Last Filed: 09/12/18 06:13> - General Chief Complaint: GI Problem Time Seen by Provider: 09/12/18 03:47 Past Medical History - Provider Review Nursing Documentation Reviewed: Yes - Past History Past History: No Previous - Infectious Disease Hx of Infectious Diseases: None - Tetanus Immunization Tetanus Immunization: Unknown - Cardiac Hx Cardiac Disorders: Yes (cp) Hx Hypertension: Yes Other/Comment: PT IS ON HYPERTENSION MEDICATIONS - Pulmonary Hx Respiratory Disorders: No - Neurological Hx Neurological Disorder: No - HEENT Hx HEENT Disorder: No - Renal Hx Renal Disorder: No - Endocrine/Metabolic Hx Endocrine Disorders: No - Hematological/Oncological Hx Blood Transfusions: Yes Hx Blood Transfusion Reaction: No - Integumentary Hx Dermatological Disorder: No - Musculoskeletal/Rheumatological Hx Falls: Yes (passed out and fell today) - Gastrointestinal Hx Gastrointestinal Disorders: No - Genitourinary/Gynecological Hx Genitourinary Disorders: No - Psychiatric Hx Substance Use: No - Past Surgical History Past Surgical History: No Previous - Surgical History Other/Comment: back surgery l4 l5 - Anesthesia Hx Anesthesia Reactions: No Hx Malignant Hyperthermia: No - Suicidal Assessment Feels Threatened In Home Enviroment: No <Jaimie Brizuela - Last Filed: 09/12/18 04:27> Family/Social History - Physician Review Nursing Documentation Reviewed: Yes Family/Social History: Unknown Family HX Smoking Status: Light Smoker < 10 Cigarettes Daily Hx Alcohol Use: No Hx Substance Use: No Hx Substance Use Treatment: No <Jaimie Brizuela - Last Filed: 09/12/18 04:27> Allergies/Home Meds <Jaimie Brizuela - Last Filed: 09/12/18 04:27> <Allan Currie - Last Filed: 09/12/18 06:13> Allergies/Adverse Reactions: Allergies No Known Allergies Allergy (Verified 09/09/18 11:06) Home Medications: Home Meds Medication Instructions Recorded Confirmed hydroCHLOROthiazide [Hydrodiuril] 25 mg PO DAILY 09/09/18 09/09/18 Metronidazole [Flagyl] 500 mg PO TID 09/10/18 09/10/18 Review of Systems - Review of Systems Constitutional: absent: Fatigue, Fevers Eyes: absent: Vision Changes ENT: absent: Hearing Changes Respiratory: absent: SOB, Cough Cardiovascular: absent: Chest Pain, Palpitations Gastrointestinal: Abdominal Pain, Constipation, Nausea, Vomiting. absent: Diarrhea Genitourinary Male: absent: Dysuria, Hematuria Musculoskeletal: Normal Skin: absent: Rash, Pruritis, Skin Lesions Neurological: absent: Headache, Dizziness Endocrine: absent: Diaphoresis Hemo/Lymphatic: absent: Adenopathy <Jaimie Brizuela - Last Filed: 09/12/18 04:27> Physical Exam Vital Signs Reviewed: Yes Temperature: Afebrile Blood Pressure: Normal Pulse: Regular Respiratory Rate: Normal Appearance: Positive for: Non-Toxic, Comfortable Pain Distress: None Mental Status: Positive for: Alert and Oriented X 3 - Systems Exam Head: Present: Atraumatic, Normocephalic Pupils: Present: PERRL Extroacular Muscles: Present: EOMI Conjunctiva: Present: Normal Mouth: Present: Moist Mucous Membranes Neck: Present: Normal Range of Motion Respiratory/Chest: Present: Clear to Auscultation, Good Air Exchange Cardiovascular: Present: Regular Rate and Rhythm, Normal S1, S2 Abdomen: Present: Tenderness (mild epigastric), Normal Bowel Sounds. No: Distention, Rebound, Guarding Back: Present: Normal Inspection Upper Extremity: Present: Normal Inspection Lower Extremity: Present: Normal Inspection. No: Edema Neurological: Present: GCS=15, CN II-XII Intact, Speech Normal, Motor Func Grossly Intact, Normal Sensory Function Skin: Present: Warm, Dry, Normal Color Psychiatric: Present: Alert, Oriented x 3, Normal Insight, Normal Concentration <Jaimie Brizuela - Last Filed: 09/12/18 04:27> Vital Signs Temp Pulse Resp BP Pulse Ox 09/12/18 03:47 98.4 F 58 L 20 139/85 98 <Allan Currie - Last Filed: 09/12/18 06:13> Medical Decision Making ED Course and Treatment: 09/12/18 03:59 AXR Zofran 09/12/18 04:23 Dulcolax 09/12/18 04:27 Re-evaluated patient. He states he feels better after medication. Instructed him to stop Flagyl and to contact his GI doctor as soon as possible for follow-up. Patient is in agreement to be discharged home. Re-evaluation Time: 04:27 Reassessment Condition: Improved - RAD Interpretation Narrative RAD Interpretations (Text): 09/12/18 04:23 AXR- unremarkable Radiology Orders: AXR <Jaimie Brizuela - Last Filed: 09/12/18 04:27> - RAD Interpretation Radiology Orders: 09/12/18 03:54 ABDOMEN PORTABLE 1 VIEW [RAD] Stat - Medication Orders Current Medication Orders: Discontinued Medications Bisacodyl (Dulcolax) 5 mg PO ONCE ONE Stop: 09/12/18 04:23 Last Admin: 09/12/18 04:43 Dose: 5 mg Ondansetron HCl (Zofran Odt) 4 mg PO STAT STA Stop: 09/12/18 03:56 Last Admin: 09/12/18 04:06 Dose: 4 mg <Allan Currie - Last Filed: 09/12/18 06:13> Disposition/Present on Arrival - Present on Arrival Any Indicators Present on Arrival: No History of DVT/PE: No History of Uncontrolled Diabetes: No Urinary Catheter: No History of Decub. Ulcer: No History Surgical Site Infection Following: None - Disposition Have Diagnosis and Disposition been Completed?: Yes Disposition Time: 04:28 Patient Plan: Discharge <Jaimie Brizuela - Last Filed: 09/12/18 04:27> - Disposition Disposition Time: 04:15 <Allan Currie - Last Filed: 09/12/18 06:13> - Disposition Diagnosis: Nausea and vomiting Disposition: HOME/ ROUTINE Condition: IMPROVED Discharge Instructions (ExitCare): Constipation, Adult (DC) Additional Instructions: MEY CLARKE, thank you for letting us take care of you today. The emergency medical care you received today was directed at your acute symptoms. If you were prescribed any medication, please fill it and take as directed. It may take several days for your symptoms to resolve. Return to the Emergency Department if your symptoms worsen, do not improve, or if you have any other problems. Please contact your doctor or call one of the physicians/clinics you have been referred to that are listed on the Patient Visit Information form that is included in your discharge packet. Bring any paperwork you were given at discharge with you along with any medications you are taking to your follow up visit. Our treatment cannot replace ongoing medical care by a primary care provider outside of the emergency department. Thank you for allowing the [facility] team to be part of your care today. You can get dulcolax [id number] for your constipation. Please follow up with your primary care doctor in 2-3 days for re-evaluation and further management. Referrals: Edu Ventura MD [Primary Care Provider] - Follow up with primary Forms: [employer] (Persian)
[2018-09-12 03:52] VITALS: BP 139/85; PULSE 58; RESP 20; TEMP 98.4; O2SAT 98
[2018-09-12] MEDS ORDERED: Bisacodyl 5mg EC Tab PO ONE (04:22)
--- NOTE | 2018-09-12 11:20 | RAD ---
Date of service: 09/12/2018 HISTORY: n/v/abd pain COMPARISON: None available. TECHNIQUE: 1 view obtained. FINDINGS: BOWEL: There are gas filled normal caliber small bowel loops. No evidence for bowel dilatation or obstruction. BONES: Normal. OTHER FINDINGS: There are multiple phleboliths in the pelvis. IMPRESSION: Nonspecific nonobstructive bowel gas pattern.
== END 2018-09-12 04:44 | disposition home or self-care (01) ==
LOC: ED 03:32
DX: R11.2 Nausea with vomiting, unspecified (principal); I10 Essential (primary) hypertension; F17.210 Nicotine dependence, cigarettes, uncomplicated